=== PATIENT | male | born 1990 | race Caucasian/White ===

== ENCOUNTER 2016-09-25 14:00 | Emergency (ER) | payer MEDICAID, OTHER ==
[~2016-09-25] VITALS: Ht 160 cm; Wt 63.5 kg
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
[2016-09-25 14:30] VITALS: BP 109/72
[2016-09-25] MEDS ORDERED: CYCL10TA2 PO (14:34)
[2016-09-25] MEDS ORDERED: NAPR250T2 PO (14:34)
== END 2016-09-25 15:00 | disposition home or self-care (01) ==
LOC: ER 14:00
DX: Z04.1 Encounter for examination and observation following transport accident (principal); V89.2XXA Person injured in unspecified motor-vehicle accident, traffic, initial encounter; Y92.413 State road as the place of occurrence of the external cause; W22.12XA Striking against or struck by front passenger side automobile airbag, initial encounter; Y93.89 Activity, other specified; Y99.8 Other external cause status
CPT/HCPCS: 99283